=== PATIENT | female | born 1965 | race Caucasian/White ===

== ENCOUNTER → 2017-03-28 | Day surgery (SDC) | payer OTHER ==
[2017-03-27 15:35] LABS: BASOPHILS # (AUTO) 0.1 X10'3 (0-0.2); BASOPHILS % (AUTO) 1.4 % (0-1); EOSINOPHILS # (AUTO) 0.1 X10'3 (0-0.9); EOSINOPHILS % (AUTO) 1.7 % (0-6); LYMPHOCYTES # (AUTO) 2.7 X10'3 (1.1-4.8); LYMPHOCYTES % (AUTO) 30.5 % (21-51); MEAN CORPUSCULAR HEMOGLOBIN 31.7 PG (27.0-31.0); MEAN PLATELET VOLUME 9.3 FL (7.4-10.4); MONOCYTES # (AUTO) 0.6 X10'3 (0-0.9); MONOCYTES % (AUTO) 7.2 % (2-12); NEUTROPHILS # (AUTO) 5.3 X10'3 (1.8-7.7); NEUTROPHILS % (AUTO) 59.2 % (42-75); PRE OP HEMATOCRIT 43.9 % (35.0-45.0); PRE OP HEMOGLOBIN 14.5 g/dL (12.0-16.0); PRE OP PLATELET COUNT 240 X10'3 (140-440); RED BLOOD COUNT 4.58 X10'6 (4.20-5.60); RED CELL DISTRIBUTION WIDTH 13.8 % (11.5-14.5)
[2017-03-27 15:36] LABS: CLARITY,URINE CLOUDY (Clear); COLOR,URINE STRAW (Yellow); GLUCOSE, URINE NEGATIVE (Neg); KETONES,URINE 15 mg/dl (Neg); LEUKOCYTE ESTERASE ,URINE NEGATIVE (Neg); NITRITES, URINE NEGATIVE (Neg); OCCULT BLOOD,URINE SMALL (Neg); PROTEIN,URINE NEGATIVE (Neg); UROBILINOGEN,URINE 0.2 E.U/dL (0.2-1.0)
[2017-03-27 15:41] LABS: UA COLLECTION TYPE CLN CATCH MIDSTREAM
[2017-03-27 15:42] LABS: SQUAMOUS EPITHELIAL CELL,UR MANY /LPF (FEW)
[2017-03-27 15:43] LABS: MUCUS STRANDS NONE SEEN /LPF (Neg)
[2017-03-27 15:44] LABS: BACTERIA,URINE 4+ /HPF (Neg); RBC,URINE 0-2 /HPF (0-2); WBC,URINE 0-4 /HPF (0-4)
[2017-03-27 16:02] LABS: ALBUMIN 3.8 G/DL (3.4-5.0); ALBUMIN/GLOBULIN RATIO 1.2 (1.1-1.5); ALKALINE PHOSPHATASE 60 IU/L (46-116); BLOOD UREA NITROGEN 8 MG/DL (7-18); BUN/CREATININE RATIO 9.4 (6.6-38.0); CALCIUM 8.7 MG/DL (8.5-10.1); CHLORIDE 108 MMOL/L (99-107); CREATININE 0.85 MG/DL (0.40-0.90); PRE OP ALT 24 U/L (30-65); PRE OP ANION GAP 8 (8-16); PRE OP AST 16 U/L (10-37); PRE OP BILIRUB, TOTAL 0.8 MG/DL (0.0-1.0); PRE OP GLUCOSE 82 MG/DL (70-104); PRE OP POTASSIUM 3.7 MMOL/L (3.4-5.1); PRE OP SODIUM 143 MMOL/L (135-145); TOTAL CARBON DIOXIDE 26.9 MMOL/L (24-32); TOTAL PROTEIN 7.1 G/DL (6.4-8.2); eGFR 70 ML/MIN
[~2017-03-28] VITALS: Ht 163.8 cm; Wt 68.0 kg
[2017-03-28] VITALS (15 sets, daily range): BP systolic 106–120; BP diastolic 66–79
[~2017-03-28] MED LIST: BUPIVAcaine/PF 2.5 mg/ml (0.25%) 30ml vial ONE; EST1T PO; FEXO180T94 PO; FLUT16SP2 BOTHNARES; LIDOcaine 1% (10mg/ml) 2ml vial ONE; LIDOcaine 2% (20mg/ml) 5ml vial ONE; PREG100C PO; VALA500T PO; clindamycin 600mg/D5W 50ml 50 ML IV ONE; dexamethasone sod phosphate 4mg/ml inj. ONE; famotidine 20mg tablet PO ONE; fentaNYL/PF 50MCG/1 ML 2ML syringe ONE; ketorolac trometh. 30mg/ml inj. ONE; meperidine/PF 25mg/ml syringe IV PRN; midazolam 2 mg/2 ml injection ONE; morphine 5 MG/ML injection IV PRN; ondansetron/PF 4mg/2ml inj IV PRN; ondansetron/PF 4mg/2ml inj ONE; proCHLORperazine 10 MG/2 ml inj IV PRN; propofol inj 20 ML IV ONE; ringers solution, lacted 1,000 ML IV SCH; sevoflurane 250ml liquid IH ONE
== END | disposition home or self-care (01) ==
LOC: PAS 06:11
PROVIDERS: ATTEND Surgery
DX: R59.0 Localized enlarged lymph nodes (principal); G89.29 Other chronic pain; K21.9 Gastro-esophageal reflux disease without esophagitis; M79.7 Fibromyalgia; M19.90 Unspecified osteoarthritis, unspecified site; Z90.711 Acquired absence of uterus with remaining cervical stump; Z98.890 Other specified postprocedural states; Z90.13 Acquired absence of bilateral breasts and nipples; Z88.0 Allergy status to penicillin; Z88.2 Allergy status to sulfonamides
CPT/HCPCS: 36415; 38760; 80053; 81001; 85025; 93005; A6255; A6449; J1100; J1885; J2001; J2250; J2405; J2704; J3010; J3490; J7120; A7000